=== PATIENT | male | born 2000 | race Hispanic/Latino ===

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

== ENCOUNTER 2021-11-19 18:49 | Emergency (ER) | payer SELFPAY ==
[2021-11-19] MEDS ORDERED: Acetaminophen 500 MG TAB ONE (20:22)
[2021-11-19] MEDS ORDERED: Ibuprofen 800 MG TAB ONE (20:22)
== END 2021-11-19 21:26 | disposition home or self-care (01) ==
LOC: ERS 18:49
DX: B34.9 Viral infection, unspecified (principal); Z20.822 Contact with and (suspected) exposure to COVID-19
CPT/HCPCS: 87804; 99283; U0003; U0005